=== PATIENT | female | born 1945 | race Caucasian/White ===

== ENCOUNTER 2019-06-20 14:17 | Emergency (ER) | payer OTHER ==
[~2019-06-20] VITALS: Ht 152.4 cm; Wt 48.5 kg
[2019-06-20 14:26] VITALS: Ht 152.4 cm; Wt 48.5 kg
[2019-06-20 15:00] LABS: BASOPHIL % 0.6 % (0-2); PLATELET COUNT 280 x10^3mcL (130-400); RED CELL DISTRIBUTION WIDTH 13.9 % (11.5-14.5)
[2019-06-20 15:14] LABS: CALCIUM 8.9 mg/dL (8.5-10.1); CARBON DIOXIDE 30.1 mmol/L (21-32); CHLORIDE SERUM 104 mmol/L (98-107); GLUCOSE SERUM 120 mg/dL (74-106); POTASSIUM SERUM 3.7 mmol/L (3.5-5.1); SODIUM SERUM 143 mmol/L (136-145)
[2019-06-20 15:19] LABS: ALKALINE PHOSPHATASE 50 U/L (46-116); ALT/SGPT 30 U/L (14-59); AST/SGOT 27 U/L (15-37); BILIRUBIN TOTAL 0.4 mg/dL (0.20-1.00); HDL CHOLESTEROL 56 mg/dL (40-60); LIPASE 110 IU/L (73-393); TOTAL PROTEIN, SERUM 6.7 g/dL (6.4-8.2); TRIGLYCERIDES 80 mg/dL (<150)
[2019-06-20 15:21] LABS: ALBUMIN 3.3 g/dL (3.4-5.0); CHOLESTEROL 114 mg/dL (<200)
[2019-06-20 15:23] LABS: FREE THYROXINE INDEX 2.7 ug/dL (1.4-4.5); T4(THYROXINE) 7.6 ug/dL (4.7-13.3)
[2019-06-20 15:25] LABS: T3 TOTAL 0.86 ng/mL
[2019-06-20 18:08] VITALS: BP 123/56
== END 2019-06-20 18:08 | disposition home or self-care (01) ==
LOC: ED 14:17
PROVIDERS: Specialist
DX: S29.011A Strain of muscle and tendon of front wall of thorax, initial encounter (principal); S30.1XXA Contusion of abdominal wall, initial encounter; S70.212A Abrasion, left hip, initial encounter; S70.211A Abrasion, right hip, initial encounter; I10 Essential (primary) hypertension; E11.9 Type 2 diabetes mellitus without complications; E78.00 Pure hypercholesterolemia, unspecified; M18.0 Bilateral primary osteoarthritis of first carpometacarpal joints; V43.62XA Car passenger injured in collision with other type car in traffic accident, initial encounter; Y93.89 Activity, other specified; Y92.488 Other paved roadways as the place of occurrence of the external cause; Y99.8 Other external cause status
CPT/HCPCS: 36415; 83880; 84439; J7030; Q0092; Q9967